=== PATIENT | female | born 1975 | race Two or more races ===

== ENCOUNTER → 2024-04-18 | Outpatient (CLI) | payer MEDICAID, SELFPAY ==
--- NOTE | 2024-04-18 14:36 | XR_ITS ---
Examination: Left elbow 3 views Technique: Elbow AP, oblique, lateral 3 views Exam date and time: April 18, 2024 at 1438 hours INDICATIONS: Left elbow pain beginning 3 weeks ago. FINDINGS: Minimal elbow osteoarthritis. No fracture or dislocation No elbow effusion IMPRESSION: Minimal elbow osteoarthritis.
== END | disposition home or self-care (01) ==
LOC: CDIM 14:22
PROVIDERS: PCP Obstetrics & Gynecology; Referring Provider Obstetrics & Gynecology; Visit Provider Obstetrics & Gynecology
DX: M19.022 Primary osteoarthritis, left elbow (principal)
CPT/HCPCS: 73080

== ENCOUNTER → 2024-12-24 | Outpatient (CLI) | payer MEDICAID, SELFPAY ==
--- NOTE | 2024-12-24 08:45 | XR_ITS ---
Examination: Screening digital mammography, bilateral Computer aided detection 3-D breast Tomosynthesis, bilateral Date and time of exam: December 24, 2024 0849 hours No priors Indication: Screening Technique: Nonmagnified MLO, CC views of the breasts to been obtained, reconstructed from 3-D Tomosynthesis images. R2 computer aided detection program utilized for evaluation of suspicious masses and/or abnormal calcifications. 3-D Tomosynthesis images obtained. Findings: The breasts are heterogeneously dense, which may obscure small masses 30 mm focal asymmetry outer right breast mid depth 16 mm focal asymmetry lobular margins inner left breast Impression: BI-RADS Category 0: Incomplete: Need additional imaging evaluation 30 mm focal asymmetry outer right breast, recommend follow-up spot tomographic views upper outer quadrant right breast 16 mm focal asymmetry inner left breast, recommend follow-up spot tomographic views inner upper left breast Recommend bilateral breast sonography to complete the workup
== END | disposition home or self-care (01) ==
LOC: CDIM 08:35
PROVIDERS: Referring Provider Family Medicine; Visit Provider Family Medicine
DX: Z12.31 Encounter for screening mammogram for malignant neoplasm of breast (principal); N64.89 Other specified disorders of breast
CPT/HCPCS: 77063; 77067

== ENCOUNTER → 2025-03-06 | Outpatient (CLI) | payer MEDICAID, SELFPAY ==
--- NOTE | 2025-03-06 | XR_ITS ---
Examination: Diagnostic digital mammography, bilateral Computer aided detection 3-D breast Tomosynthesis, bilateral Date and time of exam: March 06, 2025, 1348 hours INDICATIONS: Mammogram 12/24/2024 30 mm focal asymmetry outer right breast and 16 mm focal asymmetry inner left breast Technique: Nonmagnified MLO, CC views of the breasts to been obtained, reconstructed from 3-D Tomosynthesis images. R2 computer aided detection program utilized for evaluation of suspicious masses and/or abnormal calcifications. 3-D Tomosynthesis images obtained. Findings: The breasts are heterogeneously dense, which may obscure small masses Suspicious nodules are not confirmed on the spot compression views right and left breast Impression: BI-RADS Category 2: Benign findings Return to yearly follow-up mammography.
--- NOTE | 2025-03-06 14:00 | XR_ITS ---
Examination: Breast ultrasound complete, bilateral Date and time of exam: March 06, 2025, 1332 hours INDICATIONS: Mammogram 12/25/1999 2530 mm focal asymmetry outer right breast 16 mm focal asymmetry with lobular margins in her left breast Technique: Real-time grayscale ultrasonographic imaging bilateral breasts, including all 4 quadrants as well as nipple retroareolar and axillary regions. Findings: Sonographic images right breast No cystic or solid mass Sonographic images left breast 7:00 cyst 3 x 3 mm No solid nodules IMPRESSION: BI-RADS Category 2: Benign findings
== END | disposition home or self-care (01) ==
LOC: CDIM 13:17
PROVIDERS: PCP Family Medicine; Referring Provider Family Medicine; Visit Provider Family Medicine
DX: R92.323 Mammographic fibroglandular density, bilateral breasts (principal); R92.8 Other abnormal and inconclusive findings on diagnostic imaging of breast
CPT/HCPCS: 76641; 77062; 77066; G0279